=== PATIENT | female | born 2005 | race Caucasian/White ===

== ENCOUNTER 2024-06-21 10:18 | Inpatient (IN) | payer OTHER ==
[2024-06-21 11:46] LABS: BASO % 0.2 % (0-2.0); EOS % 0.1 % (0-4.5); HEMATOCRIT 38.8 % (32.4-45.2); HEMOGLOBIN 13.1 GM/dL (10.7-15.3); LYMPH % 10.2 % (8-40); MCHC 33.6 g/dl (32.0-36.0); MEAN CELL VOLUME 80.3 fl (80-96); MONO % 3.6 % (3.8-10.2); NEUT % 85.9 % (42.8-82.8); PLATELET COUNT 206 10^3/uL (134-434); RBC 4.84 M/mm3 (3.60-5.2); RDW 14.3 % (11.6-15.6); WHITE BLOOD COUNT 13.4 K/mm3 (4.0-10.0)
[2024-06-21 12:01] LABS: INR 0.93 (0.83-1.09); PROTHROMBIN TIME (PATIENT) 10.7 SEC (9.7-13.0)
[2024-06-21 12:04] LABS: ACTIVATED PTT 28.6 SECONDS (25.2-36.5)
[2024-06-21 12:11] LABS: CALCIUM 9.2 mg/dL (8.5-10.1)
[2024-06-21 12:12] LABS: BLOOD UREA NITROGEN 11.4 mg/dL (7-18)
[2024-06-21 12:15] LABS: CREATININE 0.6 mg/dL (0.55-1.3)
[2024-06-21 13:06] LABS: HIV INTERPRETATION NEGATIVE (NEGATIVE)
[2024-06-21] MEDS ORDERED: BUTORPHANOL TARTRATE 2 MG/ML VIAL ONE (13:07)
[2024-06-21] MEDS ORDERED: FENTANYL CITRATE/PF 50 MCG/ML VIAL ONE (13:17)
[2024-06-21] MEDS ORDERED: FENTANYL/BUPIVACAINE/NS/PF - PCEA - 50 ML DISP.SYRIN EP ONE ×2 (13:19→18:16)
[2024-06-21] MEDS: FENTANYL/BUPIVACAINE/NS/PF - PCEA - 50 ML DISP.SYRIN EP SCH (13:55)
[2024-06-21] MEDS ORDERED: NALOXONE HCL 0.4 MG/ML VIAL IVPUSH PRN (14:09)
[2024-06-21] MEDS: ELECTROLYTE-148 SOLN 1,000 ML IV SCH (14:37)
[2024-06-21] MEDS ORDERED: OXYTOCIN 30 UNITS in 0.9% NS 30 UNIT/500 ML INFUS.BAG IVPB ONE (15:29)
[2024-06-21] MEDS: OXYTOCIN 30 UNITS in 0.9% NS 30 UNIT/500 ML INFUS.BAG IVPB SCH (15:30)
[2024-06-21] MEDS: PROMETHAZINE HCL 25 MG/1 ML VIAL IVPB ONE (19:08)
[2024-06-21] MEDS: BUTORPHANOL TARTRATE 2 MG/ML VIAL IVPB ONE (19:08)
[2024-06-21] MEDS ORDERED: OXYTOCIN 20 UNITS in 0.9% NS 20 UNIT/1,000 ML INFUS.BAG IV ONE (19:32)
[2024-06-21] MEDS ORDERED: LIDOCAINE HCL 1% PRESERVATIVE FREE - 30ML VIAL ONE (19:32)
[2024-06-21] MEDS: OXYTOCIN 20 UNITS in 0.9% NS 20 UNIT/1,000 ML INFUS.BAG IV SCH (20:00)
[2024-06-21] MEDS ORDERED: BENZOCAINE 28 GM HEMORRHOIDAL OINTMENT TP PRN (20:21)
[2024-06-21] MEDS ORDERED: LABETALOL HCL 200 MG TABLET (FP) ONE (20:21)
[2024-06-21] MEDS ORDERED: oxyCODONE HCL 5 MG TABLET PO PRN (20:21)
[2024-06-21] MEDS ORDERED: ACETAMINOPHEN 325 MG TABLET (FP) PO PRN (20:21)
[2024-06-21] MEDS ORDERED: BENZOCAINE 20% 57 GM BOTTLE TP PRN (20:21)
[2024-06-21] MEDS ORDERED: WITCH HAZEL 50% (TUCKS) 40 PAD/JAR PAD TP PRN (20:21)
[2024-06-21] MEDS ORDERED: METHYLERGONOVINE MALEATE 0.2 MG/1 ML AMP IM PRN (20:21)
[2024-06-21] MEDS ORDERED: BISACODYL 10 MG SUPP.RECT RC PRN (20:21)
[2024-06-21] MEDS: LABETALOL HCL 200 MG TABLET (FP) PO SCH (20:25)
[2024-06-21] MEDS: IBUPROFEN 600 MG TABLET (FP) PO PRN (20:25)
[2024-06-21 23:40] VITALS: RESP 18
[2024-06-22] MEDS: LEVOTHYROXINE NA 25 MCG TABLET (FP) PO SCH (06:38)
[2024-06-22 08:07] LABS: BASO % 0.5 % (0-2.0); EOS % 0.2 % (0-4.5); HEMATOCRIT 32.1 % (32.4-45.2); HEMOGLOBIN 10.7 GM/dL (10.7-15.3); LYMPH % 20.5 % (8-40); MCH 26.7 pg (25.7-33.7); MCHC 33.2 g/dl (32.0-36.0); MEAN CELL VOLUME 80.5 fl (80-96); MEAN PLT VOLUME 8.3 fl (7.5-11.1); MONO % 4.9 % (3.8-10.2); NEUT % 73.9 % (42.8-82.8); PLATELET COUNT 164 10^3/uL (134-434); RBC 3.99 M/mm3 (3.60-5.2); RDW 14.7 % (11.6-15.6); WHITE BLOOD COUNT 11.3 K/mm3 (4.0-10.0)
[2024-06-22] MEDS: PRENATAL VITAMINS W/ FOLIC ACID TABLET (FP) PO SCH (11:00)
[2024-06-22] MEDS: FERROUS SO4 325 MG TABLET (FP) PO SCH (11:00)
[2024-06-22] MEDS ORDERED: SENNOSIDES/DOCUSATE COMBO (SENNA PLUS) TABLET (UD) PO PRN (22:00)
[2024-06-23] MEDS: MAG HYDROX/AL HYDROX/SIMETH 30 ML UNIT-DOSE CUP PO PRN (00:28)
[2024-06-23 08:47] VITALS: BP 124/58; PULSE 78; TEMP 98.3
== END 2024-06-23 15:55 | disposition home or self-care (01) | DRG 560 ==
LOC: JLDR 10:18 → J3W 22:51
PROVIDERS: ADMIT Obstetrics & Gynecology; ATTEND Obstetrics & Gynecology
PROC: 10E0XZZ Delivery of Products of Conception, External Approach (ICD-10-PCS; principal; 2024-06-21)
PROC: 0W8NXZZ Division of Female Perineum, External Approach (ICD-10-PCS; 2024-06-21)
DX: O13.4 Gestational [pregnancy-induced] hypertension without significant proteinuria, complicating childbirth (principal); O98.113 Syphilis complicating pregnancy, third trimester; O99.283 Endocrine, nutritional and metabolic diseases complicating pregnancy, third trimester; O99.213 Obesity complicating pregnancy, third trimester; Z3A.38 38 weeks gestation of pregnancy; Z37.0 Single live birth
CPT/HCPCS: 36415; 59409; 80048; 85025; 85610; 85730; 86593; 86780; 86850; 86900; 86901; 87389